=== PATIENT | male | born 2000 | race Caucasian/White ===

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

== ENCOUNTER 2018-10-02 02:17 | Emergency (ER) | payer SELFPAY ==
[2018-10-02 02:18] VITALS: BP 182/84; PULSE 83; RESP 18; TEMP 36.7; O2SAT 100; BMI 37.3
--- NOTE | 2018-10-02 02:32 | ED.VISSUMM ---
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 Pain became severe later the day. Physical Examination: After tetracaine slit-lamp examination was done there is no significant uptake, there is however diffuse ciliary flush. This is consistent with welders keratitis. Emergency Department Course and Treatment: Patient was reassured and educated. I will give antibiotic ointment and refer to ophthalmology. Discharge stable condition Impression: [Welders keratitis] This note was generated with [employer] dictation software. It may contain incorrect words, spelling, and punctuation that were not noted in review of the chart prior to signing ED Disposition - Plan for ED Patient: Disposition: Home or Assisted Living Instructions: ED Keratitis UV Referrals: Blu Macedo MD [STAFF PHYSICIAN] - 3-5 Days
--- NOTE | 2018-10-02 02:35 | ED.DCSUM_ITS ---
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 Pain became severe later the day. Physical Examination: After tetracaine slit-lamp examination was done there is no significant uptake, there is however diffuse ciliary flush. This is consistent with welders keratitis. Emergency Department Course and Treatment: Patient was reassured and educated. I will give antibiotic ointment and refer to ophthalmology. Discharge stable condition Impression: [Welders keratitis] This note was generated with [employer] dictation software. It may contain incorrect words, spelling, and punctuation that were not noted in review of the chart prior to signing ED Disposition - Plan for ED Patient: Disposition: Home or Assisted Living Instructions: ED Keratitis UV Referrals: Blu Macedo MD [STAFF PHYSICIAN] - 3-5 Days
--- NOTE | 2018-10-02 02:35 | ED.DEP ---
ED Disposition - Plan for ED Patient: Disposition: Home or Assisted Living Instructions: ED Keratitis UV Prescriptions: Hydrocodone Bitart/Apap 5-325 [[place] 5MG-325MG] 1 tab PO Q4H PRN PRN 2 Days #5 tab PRN Reason: Pain Referrals: Blu Macedo MD [STAFF PHYSICIAN] - 3-5 Days
[2018-10-02] MEDS: oxyCODONE 5 MG Tablet PO (02:39)
[2018-10-02] MEDS: Tetracaine 0.5% Ophthalmic Bottle 1 DRP EACH EYE (02:39)
[2018-10-02] MEDS: Diphth,Pertuss(Acell),Tet Vac 0.5 ML Vial IM (02:40)
[2018-10-02 02:58] VITALS: BP 120/106; PULSE 82; O2SAT 98
--- NOTE | 2018-10-02 02:58 | ED.RN ---
DR. ELLIS SAID THIS NURSE DID NOT HAVE TO DO VISUAL ACUITY.
== END 2018-10-02 03:01 | disposition home or self-care (01) ==
PROVIDERS: Emergency Provider Emergency Medicine
DX: H16.139 Photokeratitis, unspecified eye (principal); W89.8XXA Exposure to other man-made visible and ultraviolet light, initial encounter; Y93.9 Activity, unspecified; Y92.89 Other specified places as the place of occurrence of the external cause; Y99.8 Other external cause status
CPT/HCPCS: 90471; 90715; 99283